=== PATIENT | female | born 1955 | race Caucasian/White ===

== ENCOUNTER 2023-01-14 09:18 | Day surgery (SDC) | payer OTHER ==
[2023-01-11 11:55] VITALS: BMI 24.3
[2023-01-14] MEDS ORDERED: PROPOFOL 40 ML ONE (10:41)
[2023-01-14 11:19] VITALS: RESP 20; TEMP 97.4
[2023-01-14 11:40] VITALS: BP 124/65; PULSE 78
== END 2023-01-14 11:50 | disposition home or self-care (01) ==
LOC: FASU-ENDO 09:18
PROVIDERS: ATTEND Internal Medicine Gastroenterology
PROC: 0DB98ZX Excision of Duodenum, Via Natural or Artificial Opening Endoscopic, Diagnostic (ICD-10-PCS; 2023-01-14)
PROC: 0DB68ZX Excision of Stomach, Via Natural or Artificial Opening Endoscopic, Diagnostic (ICD-10-PCS; 2023-01-14)
PROC: 0DBM8ZX Excision of Descending Colon, Via Natural or Artificial Opening Endoscopic, Diagnostic (ICD-10-PCS; principal; 2023-01-14 10:33)
DX: Z12.11 Encounter for screening for malignant neoplasm of colon (principal); D12.4 Benign neoplasm of descending colon; K29.50 Unspecified chronic gastritis without bleeding; K29.80 Duodenitis without bleeding; R12 Heartburn
CPT/HCPCS: 82962; 88305-TC; 88342-TC